=== PATIENT | male | born 1965 | race Two or more races ===

== ENCOUNTER 2020-01-26 12:25 | Outpatient (CLI) | payer OTHER ==
[~2020-01-26 12:25] MED LIST: ASA81 MG; CLONAZEPAM 1MG TAB PO; CLONAZEPAM0.5 MG; INDERAL LA80 MG; Inderal PO; SERTRALINE HCL100 MG PO; TAMBOCOR PO; XARELTO20 MG PO
== END 2020-01-26 12:28 | disposition home or self-care (01) ==
LOC: RAD 12:25
PROVIDERS: ATTEND Physical Medicine & Rehabilitation
DX: M54.2 Cervicalgia (principal); M54.5 Low back pain; M19.011 Primary osteoarthritis, right shoulder

== ENCOUNTER 2020-02-16 11:20 | Outpatient (CLI) | payer OTHER | END 2020-02-16 11:28 | disposition home or self-care (01) | LOC: MRI 11:20 | PROVIDERS: ATTEND Physical Medicine & Rehabilitation | DX: M54.5 Low back pain (principal); M54.16 Radiculopathy, lumbar region | CPT/HCPCS: 72148 ==

== ENCOUNTER 2021-11-19 02:57 | Emergency (ER) | payer OTHER ==
[~2021-11-19] VITALS: Ht 185.4 cm; Wt 107.0 kg
[2021-11-19] MEDS ORDERED: COZAAR50 MG (03:06)
[2021-11-19] MEDS ORDERED: XANAX XR0.5 MG (03:06)
[2021-11-19] MEDS ORDERED: ZOLOFT100 MG (03:07)
[2021-11-19] MEDS ORDERED: HYDROCHLOROTH12.5 MG (03:18)
== END 2021-11-19 09:49 | disposition home or self-care (01) ==
LOC: ER 02:57
DX: R07.89 Other chest pain (principal); R00.2 Palpitations; I10 Essential (primary) hypertension; Z91.013 Allergy to seafood

== ENCOUNTER 2021-12-31 09:50 | Outpatient (CLI) | payer OTHER ==
[~2021-12-31 09:50] MED LIST changes: +COZAAR50 MG; +HYDROCHLOROTH12.5 MG; +XANAX XR0.5 MG; +ZOLOFT100 MG
== END 2021-12-31 09:58 | disposition home or self-care (01) ==
LOC: TOM 09:50
PROVIDERS: ATTEND Internal Medicine Hematology & Oncology
DX: K30 Functional dyspepsia (principal); N39.9 Disorder of urinary system, unspecified

== ENCOUNTER → 2022-01-23 | Outpatient (CLI) | payer OTHER | END | disposition home or self-care (01) | LOC: SONOGRAMA 09:36 | PROVIDERS: ATTEND Specialist | DX: K80.20 Calculus of gallbladder without cholecystitis without obstruction (principal) ==

== ENCOUNTER 2025-02-01 21:13 | Emergency (ER) | payer OTHER ==
[~2025-02-01] VITALS: Ht 182.9 cm; Wt 88.5 kg
[2025-02-01] MEDS ORDERED: BUSPIRONE HCL30 MG PO (22:15)
[2025-02-01] MEDS ORDERED: SERTRALINE HCL100 MG PO (22:16)
[2025-02-01] MEDS ORDERED: LAMICTAL25 MG PO (22:16)
[2025-02-02 02:28] LABS: BASO % 0.8 % (0.1-1.2); EOS # 0.17 (0.04-0.54); EOS % 2.0 % (0.7-7.0); LYMPH # 2.78 (1.18-3.74); LYMPH % 32.6 % (19.3-53.1); MEAN PLATELET VOLUME 10.60 fl (9.4-12.4); MONO # 0.77 (0.24-0.82); MONO % 9.0 % (4.7-12.5); NEUT # 4.72 (1.56-6.13); NEUT % 55.2 % (34.0-71.1); RED CELL DISTRIBUTION WIDTH 12.6 % (11.6-14.4)
== END 2025-02-02 05:30 | disposition home or self-care (01) ==
LOC: ER 21:13
PROVIDERS: General Practice
DX: I10 Essential (primary) hypertension (principal); R50.9 Fever, unspecified